=== PATIENT | male | born 1980 ===

== ENCOUNTER 2020-08-06 14:19 | Emergency (ER) | payer OTHER ==
[~2020-08-06] VITALS: Ht 182.9 cm; Wt 108.9 kg
[2020-08-06] MEDS ORDERED: METO100 PO (14:29)
[2020-08-06 14:53] LABS: Source, Urine Clean Catch
[2020-08-06 15:02] LABS: Appearance, Urine Clear (Clear); Bilirubin, Urine Neg (Neg); Blood, Urine Neg (Neg); Color, Urine Amber (P-Yellow); Glucose Qualitative, Urine Neg (Neg); Ketones, Urine Neg (Neg); Leukocyte Esterase, Urine 1+ (Neg); Nitrite, Urine Neg (Neg); Protein, Urine 2+ (Neg); Urobilinogen, Urine 2+ (Normal)
[2020-08-06] MEDS ORDERED: QUET25 PO (15:29)
[2020-08-06] MEDS ORDERED: ACYC200 PO (15:29)
[2020-08-06 15:31] LABS: Bacteria Few /hpf; Red Blood Cells, Urine 0-2 /hpf (0-2); Squamous Epithelial Cells Rare /hpf (Few); White Blood Cells, Urine 0-2 /hpf (0-5)
[2020-08-06] MEDS ORDERED: DOXY100 PO (15:41)
[2020-08-09 13:12] LABS: CHLAMYDIA TRACHOMATIS, NAA Negative (Negative)
== END 2020-08-06 16:28 | disposition home or self-care (01) ==
LOC: ER 14:19
PROVIDERS: Physician Assistant
DX: R36.9 Urethral discharge, unspecified (principal); I10 Essential (primary) hypertension; Z88.8 Allergy status to other drugs, medicaments and biological substances; Z79.899 Other long term (current) drug therapy
CPT/HCPCS: 81001; 87086; 87491; 87591; 90471; 90714; 96372-59; 99283-25; A9270; J0696